=== PATIENT | male | born 1960 | race Caucasian/White ===

== ENCOUNTER 2021-11-05 14:12 | Outpatient (REF) | payer SELFPAY ==
[2021-11-05 16:13] LABS: COMMENT (LAB VIEW ONLY) 70.44 mg/dL
[2021-11-05 16:35] LABS: Microalb ug/mg Crea 171.9 ug/mg Cr
== END 2021-11-05 14:13 | disposition home or self-care (01) ==
LOC: NCHCN 14:12
PROVIDERS: Visit Provider Registered Nurse
DX: E11.9 Type 2 diabetes mellitus without complications (principal); E66.9 Obesity, unspecified
CPT/HCPCS: 82043; 82570

== ENCOUNTER 2021-12-01 18:12 | Outpatient (REF) | payer SELFPAY ==
[2021-12-01 22:38] LABS: Hemoglobin A1C 10.2 % (<5.7)
[2021-12-01 22:48] LABS: ALT 23 U/L (16-63); AST 18 U/L (15-37); Albumin 3.7 g/dL (3.4-5.0); Alkaline Phosphatase 85 U/L (46-116); Anion Gap 15.4 mmol/L (3-11); BUN 14 mg/dL (7-18); Bilirubin, Total 0.4 mg/dL (0.2-1.0); CO2 20.6 mmol/L (21.0-32.0); CREATININE 0.8 mg/dL (0.70-1.30); Calcium 8.4 mg/dL (8.5-10.1); Calculated LDL 33 mg/dL (<100); Chloride 104 mmol/L (98-107); Cholesterol 85 mg/dL (<200); Glucose 138 mg/dL (74-106); HDL Cholesterol 35 mg/dL (40-60); Potassium 3.7 mmol/L (3.5-5.1); Sodium 140 mmol/L (136-145); Total Protein 6.7 g/dL (6.4-8.2); Triglyceride 87 mg/dL (<150)
[2021-12-02 18:35] LABS: PSA, Screening 4.5 ng/mL (<=4.5)
[2021-12-03 11:08] LABS: Hepatitis C Ab w Rflx HCV PCR Negative (Negative)
== END 2021-12-01 18:13 | disposition home or self-care (01) ==
LOC: NCHCN 18:12
PROVIDERS: Visit Provider Nurse Practitioner Family
DX: Z00.00 Encounter for general adult medical examination without abnormal findings (principal); I10 Essential (primary) hypertension; E11.9 Type 2 diabetes mellitus without complications; Z12.5 Encounter for screening for malignant neoplasm of prostate; Z11.59 Encounter for screening for other viral diseases
CPT/HCPCS: 80053; 80061; 84153; 86803; 83036

== ENCOUNTER 2022-09-07 09:26 | Outpatient (REF) | payer SELFPAY ==
[2022-09-06 15:55] LABS: COMMENT (LAB VIEW ONLY) 47.94 mg/dL; Microalb ug/mg Crea 92.2 ug/mg Cr
== END 2022-09-07 09:27 | disposition home or self-care (01) ==
LOC: NCHCN 09:26
PROVIDERS: Visit Provider Nurse Practitioner Family
DX: I10 Essential (primary) hypertension (principal); E11.9 Type 2 diabetes mellitus without complications; N40.1 Benign prostatic hyperplasia with lower urinary tract symptoms; E66.9 Obesity, unspecified; R80.9 Proteinuria, unspecified
CPT/HCPCS: 82043; 82570

== ENCOUNTER 2022-11-29 11:21 | Outpatient (REF) | payer SELFPAY ==
[2022-11-29 15:14] LABS: Hemoglobin A1C 7.7 % (<5.7)
[2022-11-29 15:21] LABS: Anion Gap 10.9 mmol/L (3-11); BUN 20 mg/dL (7-18); CO2 23.1 mmol/L (21.0-32.0); CREATININE 0.9 mg/dL (0.70-1.30); Calcium 9.1 mg/dL (8.5-10.1); Calculated LDL 41 mg/dL (<100); Chloride 104 mmol/L (98-107); Cholesterol 104 mg/dL (<200); Estimated GFR 95.37 (mL/min/1.73m2); Glucose 168 mg/dL (74-106); HDL Cholesterol 55 mg/dL (40-60); Potassium 4.4 mmol/L (3.5-5.1); Sodium 138 mmol/L (136-145); Triglyceride 43 mg/dL (<150)
[2022-11-30 18:26] LABS: PSA, Screening 1.6 ng/mL (<=4.5)
== END 2022-11-29 11:22 | disposition home or self-care (01) ==
LOC: NCHCN 11:21
PROVIDERS: PCP Nurse Practitioner Family; Visit Provider Nurse Practitioner Family
DX: E11.9 Type 2 diabetes mellitus without complications (principal); I10 Essential (primary) hypertension; E66.9 Obesity, unspecified; Z12.5 Encounter for screening for malignant neoplasm of prostate; Z00.00 Encounter for general adult medical examination without abnormal findings; Z13.220 Encounter for screening for lipoid disorders
CPT/HCPCS: 80048; 80061; 84153; 83036

== ENCOUNTER 2023-04-10 13:06 | Outpatient (REF) | payer SELFPAY ==
[2023-04-10 14:58] LABS: Anion Gap 10.8 mmol/L (3-11); BUN 16 mg/dL (7-18); CO2 22.2 mmol/L (21.0-32.0); CREATININE 0.8 mg/dL (0.70-1.30); Calcium 8.9 mg/dL (8.5-10.1); Chloride 103 mmol/L (98-107); Estimated GFR 98.21 (mL/min/1.73m2); Glucose 168 mg/dL (74-106); Potassium 4.3 mmol/L (3.5-5.1); Sodium 136 mmol/L (136-145)
== END 2023-04-10 13:07 | disposition home or self-care (01) ==
LOC: NCHCN 13:06
PROVIDERS: PCP Nurse Practitioner Family; Visit Provider Nurse Practitioner Family
DX: I10 Essential (primary) hypertension (principal)
CPT/HCPCS: 80048

== ENCOUNTER 2023-07-04 18:40 | Outpatient (REF) | payer SELFPAY ==
[2023-07-04 17:08] LABS: COMMENT (LAB VIEW ONLY) 51.91 mg/dL; Microalb ug/mg Crea 74.2 ug/mg Cr
== END 2023-07-04 18:41 | disposition home or self-care (01) ==
LOC: NCHCN 18:40
PROVIDERS: PCP Nurse Practitioner Family; Visit Provider Nurse Practitioner Family
DX: E11.9 Type 2 diabetes mellitus without complications (principal)
CPT/HCPCS: 82043; 82570

== ENCOUNTER 2023-10-03 15:44 | Outpatient (REF) | payer MEDICARE, SELFPAY ==
[2023-10-03 14:46] LABS: Hemoglobin A1C 6.9 % (<5.7)
[2023-10-03 15:10] LABS: ALT 26 U/L (16-63); AST 18 U/L (15-37); Albumin 4.2 g/dL (3.4-5.0); Alkaline Phosphatase 63 U/L (46-116); Anion Gap 10.7 mmol/L (3-11); BUN 14 mg/dL (7-18); Bilirubin, Total 0.5 mg/dL (0.2-1.0); CO2 23.3 mmol/L (21.0-32.0); CREATININE 0.8 mg/dL (0.70-1.30); Calcium 9.8 mg/dL (8.5-10.1); Calculated LDL 45 mg/dL (<100); Chloride 103 mmol/L (98-107); Cholesterol 109 mg/dL (<200); Estimated GFR 98.21 (mL/min/1.73m2); Glucose 144 mg/dL (74-106); HDL Cholesterol 52 mg/dL (40-60); Potassium 4.5 mmol/L (3.5-5.1); Sodium 137 mmol/L (136-145); Total Protein 7.4 g/dL (6.4-8.2); Triglyceride 62 mg/dL (<150)
== END 2023-10-03 15:45 | disposition home or self-care (01) ==
LOC: NCHCN 15:44
PROVIDERS: PCP Nurse Practitioner Family; Visit Provider Nurse Practitioner Family
DX: I10 Essential (primary) hypertension (principal); E78.5 Hyperlipidemia, unspecified; E11.9 Type 2 diabetes mellitus without complications
CPT/HCPCS: 80053; 80061; 83036

== ENCOUNTER 2024-07-16 08:37 | Outpatient (REF) | payer MEDICARE, SELFPAY ==
[2024-07-16 18:00] LABS: COMMENT (LAB VIEW ONLY) 58.59 mg/dL; Microalb ug/mg Crea 40.1 ug/mg Cr
== END 2024-07-16 08:38 | disposition home or self-care (01) ==
LOC: NCHCN 08:37
PROVIDERS: PCP Nurse Practitioner Family; Visit Provider Nurse Practitioner Family
DX: E11.9 Type 2 diabetes mellitus without complications (principal)
CPT/HCPCS: 82043; 82570

== ENCOUNTER 2024-10-08 10:01 | Outpatient (REF) | payer MEDICARE, SELFPAY ==
[2024-10-08 14:22] LABS: HCT 46.5 % (40.0-50.0); HGB 16.1 g/dL (13.5-17.5); MCHC 34.6 % (32.0-36.0); MCV 89 fL (80-95); MPV 10.4 fL (8.0-11.0); Platelet Count 242 10^3/uL (130-400); RDW-SD 42.8 fL
[2024-10-08 14:40] LABS: Hemoglobin A1C 7.6 % (<5.7)
[2024-10-08 14:47] LABS: ALT 24 U/L (16-63); AST 13 U/L (15-37); Alkaline Phosphatase 66 U/L (46-116); Anion Gap 8.8 mmol/L (3-11); BUN 15 mg/dL (7-18); Bilirubin, Total 0.6 mg/dL (0.2-1.0); CO2 24.2 mmol/L (21.0-32.0); CREATININE 0.9 mg/dL (0.70-1.30); Calcium 9.4 mg/dL (8.5-10.1); Calculated LDL 32 mg/dL (<100); Chloride 104 mmol/L (98-107); Cholesterol 90 mg/dL (<200); Estimated GFR 94.19 (mL/min/1.73m2); Glucose 169 mg/dL (74-106); HDL Cholesterol 46 mg/dL (>or=40); Potassium 4.3 mmol/L (3.5-5.1); Sodium 137 mmol/L (136-145); Total Protein 7.3 g/dL (6.4-8.2); Triglyceride 63 mg/dL (<150)
[2024-10-08 23:13] LABS: PSA, Screening 2.2 ng/mL (<=4.5)
== END 2024-10-08 10:02 | disposition home or self-care (01) ==
LOC: NCHCN 10:01
PROVIDERS: PCP Nurse Practitioner Family; Visit Provider Nurse Practitioner Family
DX: I10 Essential (primary) hypertension (principal); E11.9 Type 2 diabetes mellitus without complications; N40.1 Benign prostatic hyperplasia with lower urinary tract symptoms
CPT/HCPCS: 80053; 80061; 84153; 85027; 83036

== ENCOUNTER 2025-07-22 09:05 | Outpatient (REF) | payer MEDICARE, SELFPAY ==
[2025-07-22 17:04] LABS: Microalb ug/mg Crea 17.8 ug/mg Cr
== END 2025-07-22 09:06 | disposition home or self-care (01) ==
LOC: NCHCN 09:05
PROVIDERS: PCP Nurse Practitioner Family; Visit Provider Nurse Practitioner Family
DX: E11.9 Type 2 diabetes mellitus without complications (principal)
CPT/HCPCS: 82043; 82570